=== PATIENT | female | born 1950 | race African-American/Black ===

== ENCOUNTER 2018-07-12 21:58 | Emergency (ER) | payer MEDICARE, OTHER ==
[~2018-07-12] VITALS: Ht 180.3 cm; Wt 83.2 kg
[2018-07-12 22:01] VITALS: Ht 180.3 cm; Wt 83.2 kg
[2018-07-12] MEDS ORDERED: COZAAR50 MG (22:03)
[2018-07-12] MEDS ORDERED: HYDROCHLOROTH12.5 M1 (22:03)
[2018-07-12 22:37] LABS: BASOPHILS 0.1 % (0-2); EOSINOPHILS 0.5 % (0-7); HEMOGLOBIN 12.3 g/dL (12-16); IMMATURE GRANULOCYTES 0.3 % (0-5); LYMPHOCYTES 13.7 % (15-50); MCH 29.2 pg (26.0-34.0); MCHC 33.2 g/dL (31.0-37.0); MCV 87.9 fL (80.0-100.0); MEAN PLATELET VOLUME 9.7 fL (7.4-10.4); MONOCYTES 6.3 % (2-11); NEUTROPHILS 79.1 % (40-80); RBC 4.21 10x6/uL (4.00-5.40); RDW 13.7 % (11.5-14.5)
[2018-07-12 22:39] LABS: PLATELET COUNT 229 10x3/uL (130-400)
[2018-07-12 22:50] LABS: ALBUMIN 3.6 g/dL (3.4-5.0); ANION GAP 12.3 mmol/L (8-16); BILIRUBIN - TOTAL 0.6 mg/dL (0.2-1.3); CALCIUM 9.7 mg/dL (8.5-10.1); CARBON DIOXIDE 29.5 mmol/L (21.0-32.0); CREATININE - SERUM 1.3 mg/dL (0.6-1.3); POTASSIUM - SERUM 3.8 mmol/L (3.5-5.1); PROTEIN - SERUM 7.3 g/dL (6.4-8.2)
[2018-07-12] MEDS ORDERED: FLOMAX0.4 MG PO (23:19)
[2018-07-12] MEDS ORDERED: NORCO 5/325 TAB1 TAB PO (23:19)
[2018-07-12 23:45] LABS: APPEARANCE TURBID (CLEAR); BILIRUBIN NEGATIVE (NEGATIVE); COLOR TAN (YELLOW); GLUCOSE NEGATIVE (NEGATIVE); KETONE NEGATIVE (NEGATIVE); NITRITE NEGATIVE (NEGATIVE); PH 5.5 (5.0-6.0); PROTEIN 1+ mg/dL (NEGATIVE); SPECIFIC GRAVITY 1.015 (1.005-1.020); UROBILINOGEN NORMAL (NORMAL)
[2018-07-12 23:51] LABS: AMORPHOUS SEDIMENT >1+ /lpf (NONE SEEN); BACTERIA MANY /hpf (NONE SEEN); EPITHELIAL CELLS 0-5 /hpf (0-5); HYALINE CAST RARE /lpf (NONE SEEN); RED CELLS - URINE >50 /hpf (0-5)
[2018-07-12] MEDS ORDERED: CIPRO500 MG PO (23:57)
[2018-07-13 00:05] VITALS: BP 155/68
== END 2018-07-13 00:05 | disposition home or self-care (01) ==
LOC: D.ER 21:58
PROVIDERS: Emergency Medicine
DX: N20.1 Calculus of ureter (principal)

== ENCOUNTER → 2018-07-27 16:28 | Outpatient (CLI) | payer MEDICARE, OTHER ==
[2018-07-12 22:01] VITALS: BMI 25.5
[~2018-07-27 16:28] MED LIST: CIPRO500 MG PO; COZAAR50 MG; FLOMAX0.4 MG PO; HYDROCHLOROTH12.5 M1; NORCO 5/325 TAB1 TAB PO
== END | disposition home or self-care (01) ==
LOC: D.LABREF 16:28
PROVIDERS: Urology
DX: N20.0 Calculus of kidney (principal)

== ENCOUNTER → 2018-12-30 17:10 | Outpatient (CLI) | payer MEDICARE, OTHER ==
[2018-07-12 22:01] VITALS: BMI 25.5
== END | disposition home or self-care (01) ==
LOC: D.MAMMO 09:45
PROVIDERS: ATTEND Family Medicine
DX: Z12.31 Encounter for screening mammogram for malignant neoplasm of breast (principal)

== ENCOUNTER → 2019-01-21 08:36 | Outpatient (CLI) | payer MEDICARE, OTHER ==
[2018-07-12 22:01] VITALS: BMI 25.5
== END | disposition home or self-care (01) ==
LOC: D.US 08:36
PROVIDERS: ATTEND Family Medicine
DX: N63.12 Unspecified lump in the right breast, upper inner quadrant (principal)

== ENCOUNTER 2019-05-05 20:11 | Emergency (ER) | payer MEDICARE, OTHER ==
[~2019-05-05] VITALS: Ht 180.3 cm; Wt 88.6 kg
[2019-05-05 20:14] VITALS: Ht 180.3 cm; Wt 88.6 kg
[2019-05-05 21:11] LABS: BASOPHILS 0.2 % (0-2); EOSINOPHILS 1.7 % (0-7); HEMATOCRIT 36.9 % (36.0-48.0); HEMOGLOBIN 12.6 g/dL (12-16); IMMATURE GRANULOCYTES 0.1 % (0-5); LYMPHOCYTES 32.1 % (15-50); MCH 29.5 pg (26.0-34.0); MCHC 34.1 g/dL (31.0-37.0); MCV 86.4 fL (80.0-100.0); MEAN PLATELET VOLUME 10.3 fL (7.4-10.4); MONOCYTES 9.3 % (2-11); NEUTROPHILS 56.6 % (40-80); PLATELET COUNT 244 10x3/uL (130-400); RBC 4.27 10x6/uL (4.00-5.40); RDW 13.7 % (11.5-14.5); WBC 8.3 10x3/uL (4.8-10.8)
[2019-05-05 21:24] LABS: APTT 32.8 SECONDS (22.8-39.4); INR 1.07 (0.85-1.17); PROTIME 13.4 SECONDS (11.6-15.0)
[2019-05-05 21:30] LABS: ALBUMIN 3.9 g/dL (3.4-5.0); ANION GAP 8.8 mmol/L (8-16); BILIRUBIN - TOTAL 1.12 mg/dL (0.2-1.3); CALCIUM 9.8 mg/dL (8.5-10.1); CARBON DIOXIDE 28.8 mmol/L (21.0-32.0); CREATININE - SERUM 0.9 mg/dL (0.6-1.3); POTASSIUM - SERUM 3.6 mmol/L (3.5-5.1); PROTEIN - SERUM 7.5 g/dL (6.4-8.2)
[2019-05-05] MEDS ORDERED: IBUPROFEN800 MG PO (22:22)
[2019-05-05] MEDS ORDERED: CYCLOBENZAPRINE10 MG PO (22:22)
[2019-05-05] MEDS ORDERED: ACETAMINOPHEN500 M1 PO (22:22)
[2019-05-05 23:22] VITALS: BP 176/95
== END 2019-05-05 23:22 | disposition home or self-care (01) ==
LOC: D.ER 20:11
PROVIDERS: Family Medicine
DX: M54.2 Cervicalgia (principal); M25.552 Pain in left hip; V43.62XA Car passenger injured in collision with other type car in traffic accident, initial encounter; Y93.89 Activity, other specified; Y92.410 Unspecified street and highway as the place of occurrence of the external cause

== ENCOUNTER → 2021-02-28 09:27 | Outpatient (CLI) | payer MEDICARE, OTHER ==
[2019-05-05 20:14] VITALS: BMI 27.2
[~2021-02-28 09:27] MED LIST changes: +ACETAMINOPHEN500 M1 PO; +CYCLOBENZAPRINE10 MG PO; +IBUPROFEN800 MG PO
== END | disposition home or self-care (01) ==
LOC: D.US 09:27
PROVIDERS: ATTEND Family Medicine
DX: R33.9 Retention of urine, unspecified (principal)